=== PATIENT | female | born 1960 | race Caucasian/White ===

== ENCOUNTER 2016-06-18 10:03 | Day surgery (SDC) | payer BC ==
[2016-06-15 07:56] LABS: HEMATOCRIT 41.1 % (36.0-48.0); HEMOGLOBIN 13.4 g/dL (12.0-16.0)
[2016-06-15 08:08] LABS: BUN (BLOOD UREA NITROGEN) 15 MG/DL (6-23); CALCIUM, SERUM 8.8 MG/DL (8.5-10.4); CHLORIDE, SERUM 106 MMOL/L (96-112); CO2 (CARBON DIOXIDE) 26 MMOL/L (24-34); CREATININE 0.65 MG/DL (0.55-1.02); GFR AFRICAN AMERICAN 117 ML/MIN (>=60); GFR NON AFRICAN AMERICAN 101 ML/MIN (>=60); GLUCOSE, SERUM 125 MG/DL (60-99); POTASSIUM, SERUM 4.3 MMOL/L (3.5-5.3); SODIUM, SERUM 141 MMOL/L (135-148)
--- NOTE | ~2016-06-18 | OP ---
Record Of Operation [facility] [address] [place]. [address] NAME: ISH RICH : 64 STATUS : [facility]#: [id number] AGE: 56 ADM/REG DATE : 06/18/16 MR#: [id number] REPORT SERV DATE: 06/29/16 DICTATED BY: Mary WAYNE DATE: 06/28/16 REPORT STATUS : Draft TRANSCRIBED BY: MIHAI DATE: 06/28/16 DATE OF PROCEDURE: 06/18/2016 PREOPERATIVE DIAGNOSES: 1. Basal cell carcinoma of the left upper lip. 2. Defect of the left upper lip secondary to Mohs micrographic surgical excision of basal cell carcinoma. POSTOPERATIVE DIAGNOSES: 1. Basal cell carcinoma of the left upper lip. 2. Defect of the left upper lip secondary to Mohs micrographic surgical excision of basal cell carcinoma. 3. 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 PROCEDURES: 1. Surgical excisional preparation of left upper lip defect. 2. Reconstruction of left upper lip defect with lip rotation flap. 3. Reconstruction of acquired deformity of the vermilion with vermilion and oral cavity rotation flap. FINDINGS: A 7 mm wide x 5 mm tall defect of the skin of the left upper lip, touching the philtral column and touching the vermilion border, crossing the vermilion border by 1 mm. INDICATIONS: This 56-year-old female had a biopsy-proven basal cell carcinoma of the left upper lip removed by Mohs micrographic surgical excision today and now presents for reconstruction of this defect. In my office, prior to her Mohs surgery, the pros and cons, alternatives, benefits, risks, limitations, and complications of reconstruction of the anticipated defect were discussed at length with the patient. No guarantees expressed. She understands, wishes to proceed. We discussed the risks of numbness, infection, distortion of the lip, reaction to suture, scarring, imponderables. Proper consent obtained. No guarantees expressed. DESCRIPTION OF PROCEDURE: She was taken in to the operating room and given general oral endotracheal anesthesia in the supine position. Sterile drapes were applied after the face and upper neck were prepped with Hibiclens and saline followed by isopropyl alcohol. None of these solutions got in her eyes. None of the alcohol got in the wound. The wound measured as stated above. The vermilion border bilaterally to the oral commissure was marked out. The midline of the lip was marked out. The philtral column on the right and left were marked out. The left philtral column marking came to the edge of the defect. A vertical incision was marked out at the lateral aspect of the defect to include the beveled edges to be resected. This vertical line went from the vermilion border up to the base of the nose. This was carefully marked out to be equidistant and parallel to the philtral column marking. An incision was marked out at the base of the nose around the lateral ala to where the apex of the upper lip met the medial labial fold. A very small crescent was marked out at the lateral ala. This measured approximately 2 mm wide and Record Of Operation [place] [id number] [facility] [place]. [address] NAME: ISH RICH : 64 STATUS : [facility] PAT#: [id number] AGE: 56 ADM/REG DATE : 06/18/16 MR#: [id number] REPORT SERV DATE: 06/29/16 DICTATED BY: Mary WAYNE DATE: 06/28/16 REPORT STATUS : Draft TRANSCRIBED BY: MIHAI DATE: 06/28/16 tapered to the apex of the alar crease. The oral commissure was marked out bilaterally. The upper lip was injected with 1% Xylocaine with 1:100,000 epinephrine. A regional block was accomplished with 0.5% Marcaine with 1:200,000 epinephrine for the branches of the infraorbital nerve. 0.5% Marcaine with epinephrine was also injected at the base of the nose. Five minutes elapsed for vasoconstriction. According to the markings, the triangle of skin was incised along the left philtral column, base of nose, and then the vertical incision that was parallel to the philtral column at the lateral aspect of the defect down to the vermilion border. The segment of skin was removed full-thickness skin down to the level of the orbicularis kristin muscle. This surgically prepared the wound for closure and gave good edges for approximation and wound closure. Next, with the skin hooks elevating the lateral aspect of the defect, an incision was first made around the ala and base of the nose and along the vermilion border down to the level of the oral commissure. This lip and cheek flap was then elevated in the plane just above the level of the muscle with a Ashley needle tip cautery for flap elevation and hemostasis. A crescent vernon as described above was excised at the lateral ala. This flap measured 4 cm wide and varied 2.5 cm to 4 cm tall. This flap was then rotated into place and sutured with 4-0 and 5-0 Vicryl. A comparison of the right and left lips were made and a curvilinear excision of skin was made at the bottom of the flap to the lateral oral commissure to reconstruct the shape of the new vermilion border. There was an obvious acquired deformity of the vermilion, and this was treated by developing a vermilion and oral mucosal rotation flap. It was first elevated, then incrementally sutured in place with interrupted 6-0 Vicryl. A backcut was made at the level of the oral commissure, and this was closed with 6- 0 Vicryl interrupted sutures. The skin edges at the base of the nose were treated with 6-0 Prolene. A 6-0 Prolene was used at the new vermilion border. The vertical incisions and the alar crease were treated with Dermabond. The wounds were cleansed with hydrogen peroxide and dried. Mastisol and paper tape were applied in antitension fashion. The patient was awakened, extubated, and taken to the recovery room in good condition having tolerated the procedure well. Home going instructions included recheck in the office in 6 days. Prescriptions were given for hydrocodone 7.5 mg/325 APAP #25 one p.o. q.4-6 h. p.r.n. pain; generic Omnicef 300 mg, #20, one p.o. b.i.d.; generic Zofran 8 mg ODT, #9, one p.o. dissolved orally q.6 h. p.r.n. nausea or vomiting. JAGRUTI/MODL Mary Wayne M.D. / [id number] CC: Record Of [place] [address] [address] [address] NAME: ISH RICH : 64 STATUS : [facility] PAT#: [id number] AGE: 56 ADM/REG DATE : 06/18/16 MR#: [id number] REPORT SERV DATE: 06/29/16 DICTATED BY: Mary WAYNE DATE: 06/28/16 REPORT STATUS : Draft TRANSCRIBED BY: MODL DATE: 06/28/16 Zulma Pa M.D.
[~2016-06-18 10:03] MED LIST: GLUCOPHAGE1000 MG PO; HYDROCHLOROT12.5 MG PO; LIPITOR40 PO; SEPTRA DS1 TAB PO; VICTOZA18 MG/3 ML SC; XALAT OPH
== END 2016-06-18 18:16 | disposition home or self-care (01) ==
LOC: SDC 10:03
PROVIDERS: Specialist
PROC: 0CX0XZZ Transfer Upper Lip, External Approach (ICD-10-PCS; principal; 2016-06-18 11:30)
DX: C44.01 Basal cell carcinoma of skin of lip (principal); K13.0 Diseases of lips; E11.9 Type 2 diabetes mellitus without complications; G43.909 Migraine, unspecified, not intractable, without status migrainosus; E78.00 Pure hypercholesterolemia, unspecified; Z90.89 Acquired absence of other organs; Z79.899 Other long term (current) drug therapy; Z80.1 Family history of malignant neoplasm of trachea, bronchus and lung; Z82.49 Family history of ischemic heart disease and other diseases of the circulatory system; Z83.3 Family history of diabetes mellitus; Z98.890 Other specified postprocedural states; Z98.51 Tubal ligation status
CPT/HCPCS: 80048; 82962; 85014; 85018; 93005; A9270-GY; J0690; J2250; J2370; J2405; J2550; J2710; J3010